=== PATIENT | female | born 1975 | race Caucasian/White ===

== ENCOUNTER 2017-06-29 17:47 | Emergency (ER) | payer SELFPAY ==
[~2017-06-29] VITALS: Ht 172.7 cm; Wt 108.9 kg
[2017-06-29 17:55] VITALS: BP 139/98
[2017-06-29] MEDS ORDERED: ALBUTEROL 0.083% 2.5 MG/3 ML NEBU INH ONE ×2 (18:00→18:25)
[2017-06-29] MEDS ORDERED: predniSONE 20 MG TAB PO ONE (18:00)
[2017-06-29] MEDS ORDERED: ALBUTEROL SULFATE/IPRATROPIU 3 ML SOL IH ONE ×2 (18:00→18:25)
[2017-06-29] MEDS ORDERED: KETOROLAC 30 MG/ML VIAL IVP ONE (18:25)
[2017-06-29 19:14] VITALS: BP 139/98
== END 2017-06-29 19:13 | disposition home or self-care (01) ==
LOC: MED 17:47
DX: J45.901 Unspecified asthma with (acute) exacerbation (principal)
CPT/HCPCS: 94640; 96374; 99284; J1885; J7512; J7613; J7620